=== PATIENT | female | born 1965 | race Caucasian/White ===

== ENCOUNTER → 2016-10-29 | Outpatient (CLI) | payer MEDICAID ==
[~2016-10-29] MED LIST: ALBU18HF INH; ASPI-188 PO; ATOR10TA9 PO; ATOR20TA PO; GLIP5TAB10 PO; HYDR12.58 PO; HYDR1TAB12 PO; INSU100V8 SQ; INSU200I4 SC; INSU300I INJ; LIRA0.6P2 INJ; LIRA0.6P2 SC; LOSA25TA5 PO; METF10002 PO; OMEP-110 PO; PEG4000S8 PO
== END | disposition home or self-care (01) ==
LOC: PETCFH 10:35
PROVIDERS: ATTEND Physician Assistant Medical
DX: R19.7 Diarrhea, unspecified (principal); R10.13 Epigastric pain; E11.9 Type 2 diabetes mellitus without complications; I10 Essential (primary) hypertension; E78.00 Pure hypercholesterolemia, unspecified; F20.9 Schizophrenia, unspecified; K14.9 Disease of tongue, unspecified; E66.9 Obesity, unspecified; R68.81 Early satiety; K30 Functional dyspepsia
CPT/HCPCS: 78264; A9541

== ENCOUNTER → 2016-11-10 | Outpatient (CLI) | payer MEDICAID | END | disposition home or self-care (01) | LOC: CFH 14:15 | PROVIDERS: ATTEND Nurse Practitioner Adult Health | DX: M50.322 Other cervical disc degeneration at C5-C6 level (principal); M50.321 Other cervical disc degeneration at C4-C5 level; M50.323 Other cervical disc degeneration at C6-C7 level; M48.02 Spinal stenosis, cervical region; M54.12 Radiculopathy, cervical region; R53.1 Weakness | CPT/HCPCS: 72141 ==

== ENCOUNTER 2017-04-20 17:31 | Emergency (ER) | payer MEDICAID, OTHER ==
[~2017-04-20] VITALS: Ht 162.6 cm; Wt 101.2 kg
[~2017-04-20 17:31] MED LIST changes: -ASPI-188 PO; +ASPI-682 PO
[2017-04-20] MEDS ORDERED: SODIUM CHLORIDE 0.9% 1,000ML IVBOLUS ONE ×2 (18:30)
[2017-04-20] MEDS ORDERED: ONDANSETRON 2MG/ML, 2ML IVPush ONE (18:30)
[2017-04-20 18:53] LABS: ASPARTATE AMINO TRANSFERASE 4 U/L (15-37); BLOOD UREA NITROGEN 10 mg/dL (7-18)
[2017-04-20] MEDS ORDERED: ONDANSETRON 2MG/ML, 2ML ONE (18:54)
[2017-04-20 19:09] LABS: HEMATOCRIT 54.2 % (34.6-47.8); HEMOGLOBIN 18.2 g/dL (11.7-16.4); WHITE BLOOD COUNT 5.9 x10^3/uL (3.4-10)
[2017-04-20] MEDS ORDERED: INSULIN REGULAR 100 UNITS/ML, 3ML VIAL ONE ×2 (19:27→21:23)
[2017-04-20] MEDS ORDERED: INSULIN REGULAR 100 UNITS/ML, 3ML VIAL SQ-INSULIN ONE ×2 (19:30→21:30)
[2017-04-20 23:05] VITALS: BP 136/78
== END 2017-04-20 23:10 | disposition home or self-care (01) ==
LOC: ED 22:37
DX: E10.65 Type 1 diabetes mellitus with hyperglycemia (principal); R10.13 Epigastric pain; K21.9 Gastro-esophageal reflux disease without esophagitis; E78.5 Hyperlipidemia, unspecified; I10 Essential (primary) hypertension
CPT/HCPCS: 36415; 76700; 80053; 81003; 82010; 82800; 82962; 83690; 85025; 96361; 96372; 96374; 99285; J2405; J7030

== ENCOUNTER 2017-08-04 13:46 | Emergency (ER) | payer MEDICARE, OTHER ==
[~2017-08-04] VITALS: Ht 162.6 cm; Wt 103.5 kg
[2017-08-04] MEDS ORDERED: DIAZEPAM 5 MG TABLET ONE (15:08)
[2017-08-04] MEDS ORDERED: KETOROLAC 30 MG/1 ML ONE (15:08)
[2017-08-04] MEDS ORDERED: KETOROLAC 30 MG/1 ML IM ONE (15:30)
[2017-08-04] MEDS ORDERED: DIAZEPAM 5 MG TABLET PO ONE (15:30)
[2017-08-04 16:15] VITALS: BP 157/95
== END 2017-08-04 16:17 | disposition home or self-care (01) ==
LOC: ED 16:10
DX: S39.012A Strain of muscle, fascia and tendon of lower back, initial encounter (principal); M51.36 Other intervertebral disc degeneration, lumbar region; E78.5 Hyperlipidemia, unspecified; F20.9 Schizophrenia, unspecified; F32.9 Major depressive disorder, single episode, unspecified; I10 Essential (primary) hypertension; K21.9 Gastro-esophageal reflux disease without esophagitis; E11.40 Type 2 diabetes mellitus with diabetic neuropathy, unspecified; W01.0XXA Fall on same level from slipping, tripping and stumbling without subsequent striking against object, initial encounter; Y93.89 Activity, other specified; Y92.89 Other specified places as the place of occurrence of the external cause; Y99.8 Other external cause status
CPT/HCPCS: 72110; 96372; 99284; J1885

== ENCOUNTER → 2017-11-25 | Outpatient (CLI) | payer MEDICARE, OTHER | LOC: CFH 06:37 | PROVIDERS: ATTEND Family Medicine Sports Medicine | DX: M25.572 Pain in left ankle and joints of left foot (principal); M25.9 Joint disorder, unspecified ==

== ENCOUNTER 2018-03-01 11:02 | Emergency (ER) | payer MEDICARE, OTHER ==
[~2018-03-01] VITALS: Ht 162.6 cm; Wt 104.0 kg
[2018-03-01 11:03] VITALS: BP 160/80
[2018-03-01] MEDS ORDERED: IBUPROFEN 200 MG TABLET ONE (11:58)
[2018-03-01] MEDS ORDERED: IBUPROFEN 200 MG TABLET PO ONE (12:00)
== END 2018-03-01 13:43 | disposition home or self-care (01) ==
LOC: ED 13:37
DX: M25.561 Pain in right knee (principal); M25.572 Pain in left ankle and joints of left foot; G89.29 Other chronic pain; E11.9 Type 2 diabetes mellitus without complications; K21.9 Gastro-esophageal reflux disease without esophagitis
CPT/HCPCS: 82962; 99284